=== PATIENT | female | born 1940 | race Hispanic/Latino ===

== ENCOUNTER 2018-09-08 15:49 | Emergency (ER) | payer MEDICARE ==
[2018-09-08 15:49] VITALS: BMI 39.5
--- NOTE | 2018-09-08 16:43 | ED PDOC ---
Arrival/HPI - General Chief Complaint: Eye Problem Time Seen by Provider: 09/08/18 16:27 Historian: Patient - History of Present Illness Narrative History of Present Illness (Text): 09/08/18 16:43 78 year old female, whose past medical history includes hypertension, anxiety and s/p RTK surgery 06/16/16 BIBT[facility], presents to the emergency department complaining of irritated eyes. Patient states she may have accidentally put hand cream in her eyes. She woke up with her eyes irritated with a burning sensation. She denies fevers, chills, headache, dizziness, chest pain, shortness of breath, dyspnea on exertion, cough, abdominal pain, nausea, vomiting, diarrhea, back pain, neck pain, or any other complaint. Time/Duration: 24 hours Symptom Course: Unchanged Quality: Burning Activities at Onset: Light Context: Home Past Medical History - Provider Review Nursing Documentation Reviewed: Yes - Infectious Disease Hx of Infectious Diseases: None - Cardiac Hx Hypertension: Yes - Pulmonary Hx Respiratory Disorders: Yes Hx Pneumonia: Yes (1996 never hospitalized) - Neurological Hx Neurological Disorder: No - HEENT Hx HEENT Disorder: Yes Hx Cataracts: Yes (bilat iol) - Renal Hx Renal Disorder: No - Endocrine/Metabolic Hx Endocrine Disorders: No - Hematological/Oncological Hx Blood Disorders: Yes Hx Cancer: Yes (right breast 3 years ago) Hx Chemotherapy: (radiation only) - Integumentary Hx Dermatological Disorder: No - Musculoskeletal/Rheumatological Hx Arthritis: Yes - Gastrointestinal Hx Gastrointestinal Disorders: No - Genitourinary/Gynecological Hx Genitourinary Disorders: No - Psychiatric Hx Psychophysiologic Disorder: Yes Hx Depression: Yes Hx Emotional Abuse: No Hx Physical Abuse: No Hx Substance Use: No - Surgical History Hx Breast Biopsy: Yes (right lumpectomy) Hx Cataract Extraction: Yes (bilat) Hx Joint Replacement: Yes (right knee) Other/Comment: R knee surgery on jun 16, 2016 - Anesthesia Hx Anesthesia: Yes Hx Anesthesia Reactions: Yes (cardiac issue per pt february 2016) Hx Malignant Hyperthermia: No - Suicidal Assessment Feels Threatened In Home Enviroment: No Family/Social History - Physician Review Nursing Documentation Reviewed: Yes Family/Social History: No Known Family HX Smoking Status: Former Smoker Hx Alcohol Use: No Hx Substance Use: No Allergies/Home Meds Allergies/Adverse Reactions: Allergies No Known Allergies Allergy (Verified 07/22/16 17:01) Home Medications: Home Meds Medication Instructions Recorded Confirmed Alprazolam [Xanax] 0.5 mg PO DAILY PRN 01/31/16 06/07/17 Anastrozole 1 mg PO DAILY 01/31/16 06/07/17 Escitalopram [Lexapro] 20 mg PO DAILY 01/31/16 06/07/17 Losartan/Hydrochlorothiazide 25 mg PO DAILY 01/31/16 06/07/17 [Losartan-Hctz 50-12.5 mg Tab] Risperidone [Risperidone Odt] 0.5 mg PO DAILY 07/03/16 06/07/17 Review of Systems - Physician Review All systems were reviewed & negative as marked: Yes - Review of Systems Constitutional: absent: Fevers Eyes: Eye Pain (irritated eyes) Respiratory: absent: SOB, Cough Cardiovascular: absent: Chest Pain Gastrointestinal: absent: Abdominal Pain, Diarrhea, Nausea, Vomiting Musculoskeletal: absent: Back Pain, Neck Pain Neurological: absent: Headache, Dizziness Physical Exam - Physical Exam Narrative Physical Exam (Text): 09/08/18 16:43 Gen: VS reviewed, alert, well developed, well nourished, nontoxic, mild distress. ENT: normal pharynx. Eye: EOMI, PERRL. sclera congenital redness. Neck: no JVD, supple, no adenopathy. CV: regular rate, regular rhythm, no rubs, no murmur, no gallops, S1, S2, pulses equal and strong. Pulm: no distress, clear to auscultation, no wheeze, no rhonchi, breath sounds equal, no rales. Abd: soft, nontender, no guarding, no rebound, no rigidity, normal bowel sounds. Ext: no edema. Skin: good color, no rash, no cyanosis. Psych: responds appropriately to questions, normal affect. Neuro: oriented x 3, CN2-12 intact grossly, motor intact, sensation intact. Vital Signs Reviewed: Yes Temperature: Afebrile Blood Pressure: Hypertensive Pulse: Bradycardic Respiratory Rate: Normal Appearance: Positive for: Well-Appearing, Non-Toxic, Comfortable Pain Distress: None Mental Status: Positive for: Alert and Oriented X 3 Medical Decision Making ED Course and Treatment: 09/08/18 16:43 Impression: 78 year old female who presents to the emergency department complaining of irritated eyes. Plan: -- eye irrigation -- Reassess and disposition Prior Visits: Notes and results from previous visits were reviewed. Progress Notes: 09/08/18 18:15 patient feels much better after saline irrigation. will rx for eye drops and refer patient back to her ophthmalogist. - Scribe Statement The provider has reviewed the documentation as recorded by the Dhruvibjuvenal Messina Radhikananda Provider Scribe Attestation: All medical record entries made by the Scribe were at my direction and personally dictated by me. I have reviewed the chart and agree that the record accurately reflects my personal performance of the history, physical exam, medical decision making, and the department course for this patient. I have also personally directed, reviewed, and agree with the discharge instructions and disposition. Disposition/Present on Arrival - Present on Arrival Any Indicators Present on Arrival: No History of DVT/PE: No History of Uncontrolled Diabetes: No Urinary Catheter: Yes History of Decub. Ulcer: No History Surgical Site Infection Following: None - Disposition Have Diagnosis and Disposition been Completed?: Yes Diagnosis: Conjunctivitis of both eyes Disposition: HOME/ ROUTINE Disposition Time: 18:16 Patient Plan: Discharge Condition: STABLE Discharge Instructions (ExitCare): Conjunctivitis (Noninfectious Pinkeye) Additional Instructions: Follow up with your eye doctor as soon as possible. Call tomorrow to make an appointment. TANVI ROLLINS, thank you for letting us take care of you today. Your provider was Dr. Brandon Hall and you were treated for conjunctivitis. The emergency medical care you received today was directed at your acute symptoms. If you were prescribed any medication, please fill it and take as directed. It may take several days for your symptoms to resolve. Return to the Emergency Department if your symptoms worsen, do not improve, or if you have any other problems. Please contact your doctor or call one of the physicians/clinics you have been referred to that are listed on the Patient Visit Information form that is included in your discharge packet. Bring any paperwork you were given at discharge with you along with any medications you are taking to your follow up visit. Our treatment cannot replace ongoing medical care by a primary care provider outside of the emergency department. Thank you for allowing the [facility] team to be part of your care today. If you had an X-Ray or CT scan: A Radiologist will review the ED reading if any change in treatment is needed we will contact you. If you had a blood, urine, or wound culture: It will take several days for the results, if any change in treatment is needed we will contact you. If you had an STI test: It will take 48 hours for the results. Please call after 1 week if you have not heard back. Prescriptions: Erythromycin 0.5% [Erythromycin] 1 applic LEFTEYE QID 5 Days #1 tube Forms: [employer] ([place])
[2018-09-08 17:27] VITALS: BP 155/95; PULSE 58; RESP 16; TEMP 98.2; O2SAT 97
== END 2018-09-08 18:00 | disposition home or self-care (01) ==
LOC: ED 15:49
DX: H10.9 Unspecified conjunctivitis (principal)

== ENCOUNTER 2018-11-15 11:51 | Outpatient (CLI) | payer MEDICARE | END 2018-11-15 11:52 | disposition home or self-care (01) | LOC: LAB 11:51 ==

== ENCOUNTER 2019-02-07 10:45 | Outpatient (CLI) | payer MEDICARE, OTHER | END 2019-02-07 10:46 | disposition home or self-care (01) | LOC: RAD 10:45 ==